=== PATIENT | female | born 1995 | race Caucasian/White ===

== ENCOUNTER 2016-12-26 00:05 | Emergency (ER) | payer OTHER ==
[2016-12-26 00:22] VITALS: TEMP 36.4
--- NOTE | 2016-12-26 00:34 | EMERGENCY ROOM VISIT NOTE ---
History Report prepared by Rashawn: Nanette Duncan Under the Supervision of: Dr. Yojana Adler D.O. First contact with patient: 00:13 Chief Complaint: ALCOHOL OVERDOSE Stated Complaint: ALCOHOL OD History of Present Illness The patient is a 21 year old female who presents to the Emergency Room with complaints of an alcohol overdose that occurred prior to arrival. Per the patient's friend, they were at a bar this evening where she had 3-4 drinks. He states that he and the patient were dancing when the patient started to become altered and not respond appropriately. The patient's friend states that the patient went to the bathroom and came back vomiting. He states that then the patient became completely unresponsive. The patient's friend states that he became concerned for the patient's safety and brought her here for further evaluation and treatment. The patient's friend states that the patient ate a small amount this evening. He denies seeing the patient fall this evening. The patient's friend stats that he believes that the patient has a thyroid problem. The history is limited secondary to alcohol intoxication. Source of History: friend History Limited By: intoxication Onset: prior to arrival Position: other (global) Quality: other (alcohol overdose) Associated Symptoms: + vomiting Review of Systems The history is limited secondary to alcohol intoxication. Past Medical & Surgical Unobtainable secondary to alcohol intoxication. Family History Unobtainable secondary to alcohol intoxication. Social History Alcohol Use: heavy Occupation Status: [employer] student Current/Historical Medications Scheduled Levothyroxine Sodium (Levothyroxine Sodium), 1 TAB PO DAILY Allergies Coded Allergies: No Known Allergies (Unverified , 12/26/16) Physical Exam Vital Signs Date Time Temp Pulse Resp B/P Pulse Ox O2 Delivery O2 Flow Rate FiO2 12/26/16 06:15 14 12/26/16 05:45 10 12/26/16 05:15 23 12/26/16 04:52 100/59 12/26/16 04:31 79/52 12/26/16 04:30 76/62 12/26/16 04:17 68 12/26/16 04:15 69 17 96 12/26/16 04:10 68 22 96 Room Air 12/26/16 04:00 84/48 12/26/16 03:40 68 13 96 Room Air 12/26/16 03:30 99/59 12/26/16 03:10 71 14 96 12/26/16 03:00 92/54 12/26/16 02:40 69 24 97 Room Air 12/26/16 02:30 87/60 12/26/16 02:10 73 12 96 12/26/16 02:00 90/47 12/26/16 01:40 71 13 99 Room Air 12/26/16 01:30 90/65 12/26/16 01:10 70 12 97 Room Air 12/26/16 01:05 68 14 98 Room Air 12/26/16 01:00 88/46 12/26/16 00:35 66 12 99 Room Air 12/26/16 00:30 87/49 12/26/16 00:22 36.4 69 18 88/54 98 Room Air 12/26/16 00:16 62 12/26/16 00:13 88/54 Physical Exam Gen.: The patient is completely unresponsive. She does not arouse to verbal stimuli. HEENT: Head - normocephalic and atraumatic Pupils are 5 mm and nonreactive. Nose - moist nasal mucosa without discharge. Mouth - moist buccal mucosa. Oropharynx is nonerythematous and there is no tonsillar exudate or edema noted. Neck: Supple; no JVD, nuchal rigidity, cervical lymphadenopathy. Heart: Regular rate and rhythm. There is a normal S1 and S2 with no murmurs, clicks, or gallops appreciated. Lungs: Clear to auscultation bilaterally with no wheezes, rales, or rhonchi. Abdomen: Soft, completely nontender, nondistended, with good bowel sounds. There are no palpable pulsatile masses or hepatosplenomegaly. There is no guarding, rigidity, or rebound noted. Extremities: No evidence of cyanosis, clubbing, or edema. There are easily palpable peripheral pulses. Skin: warm and diaphoretic with good turgor and no rashes. Medical Decision & Procedures Laboratory Results 12/26/16 00:20 Test 12/26/16 00:19 12/26/16 00:20 12/26/16 04:52 Bedside Glucose 116 mg/dl (70-90) Anion Gap 13.0 mmol/L (3-11) Estimated GFR () 144.6 Estimated GFR (Non- 124.8 BUN/Creatinine Ratio 18.1 (10-20) Calcium Level 8.0 mg/dl (8.5-10.1) Ethyl Alcohol mg/dL 217.0 mg/dl (0-3) Urine Opiates Screen NEG (NEG) Urine Methadone, Qualitative NEG (NEG) Urine Barbiturates NEG (NEG) Urine Phencyclidine (PCP) Level NEG (NEG) Ur Amphetamine/Methamphetamine NEG (NEG) MDMA (Ecstasy) Screen NEG (NEG) Urine Benzodiazepines Screen NEG (NEG) Urine Cocaine Metabolite NEG (NEG) Urine Marijuana (THC) NEG (NEG) Laboratory results per my review. ED Course 0007: Past medical records reviewed. The patient was evaluated in room B6. A complete history and physical exam was performed. Labs were drawn as above. The patient was placed in the prone position to avoid aspiration. She was observed on a groundwater monitoring technician and pulse oximeter. 0015: I obtained more information from the patient's friend at this time. 0127: I reevaluated the patient and she is still unresponsive with stable vital signs. The patients friend is going to stay with the patient until she is discharged. 0515: I reevaluated the patient and she is fully awake. She states that she doesn't normally drink and states that she only had two drinks. The patient denies any trauma. 0546: I reevaluated the patient and she is resting comfortably. The patient was able to give urine specimen. The urine tox screen was negative. I discussed all the exam findings with her and I discussed the treatment plan. She verbalized complete understanding and agreement. She is ready to go home. Medical Decision The patient is a 21 year old female who presents to the ED with an alcohol overdose. Differential diagnosis includes alcohol overdose, drug intoxication, head injury, hypoglycemia. Lab interpretation: alcohol 217, glucose 113, normal renal function, potassium 3.2, urine tox screen is negative. This is a 21-year-old female patient who presents to the emergency Department by private vehicle with a friend in an unresponsive state. The friend describes that they were at a bar drinking when the patient began to vomit and then became unresponsive. They brought her here for evaluation. Her blood alcohol level was 217. We discussed the possibility of some other drug intoxication. Urine tox screen was negative. Once the patient woke up, she denied any trauma. She admits that she does not normally drink any alcohol. Impression Primary Impression: Alcohol overdose Scribe Attestation The scribe's documentation has been prepared under my direction and personally reviewed by me in its entirety. I confirm that the note above accurately reflects all work, treatment, procedures, and medical decision making performed by me. Departure Information Dispostion Home / Self-Care Referrals No Doctor, Assigned (PCP) Forms HOME CARE DOCUMENTATION FORM, IMPORTANT VISIT INFORMATION Patient Instructions ED Overdose Alcohol, [facility]: [employer] Students and Alcohol Related Visits, [facility] Additional Instructions Rest Take plenty of clear liquids Avoid such excessive alcohol use in the future Take tylenol for headaches
[2016-12-26 01:02] LABS: BLOOD UREA NITROGEN 12 mg/dl (7-18); BUN/CREATININE RATIO 18.1 (10-20); CARBON DIOXIDE 23 mmol/L (21-32); CHLORIDE 107 mmol/L (98-107); CREATININE 0.67 mg/dl (0.60-1.20); GLUCOSE 113 mg/dl (70-99); POTASSIUM 3.2 mmol/L (3.5-5.1); SODIUM 143 mmol/L (136-145)
[2016-12-26 04:15] VITALS: O2SAT 96
[2016-12-26 04:17] VITALS: PULSE 68
[2016-12-26 04:52] VITALS: BP 100/59
[2016-12-26] MEDS ORDERED: LEVO75TA5 PO (05:12)
[2016-12-26 05:33] LABS: BENZODIAZEPINE, URINE NEG (NEG); COCAINE,URINE NEG (NEG); PHENCYCLIDINE, URINE NEG (NEG)
== END 2016-12-26 06:24 | disposition home or self-care (01) ==
LOC: MERGE 00:06 → C.EDB 00:06
DX: T51.91XA Toxic effect of unspecified alcohol, accidental (unintentional), initial encounter (principal)